=== PATIENT | male | born 1955 | race Caucasian/White ===

== ENCOUNTER → 2017-12-10 15:28 | Outpatient (CLI) | payer OTHER, SELFPAY ==
--- NOTE | 2017-12-10 15:32 | CT_ITS ---
STUDY: CT ABDOMEN AND PELVIS WITH CONTRAST REASON FOR EXAM: Male, 62 years old. Diverticulitis. History of prior colectomy. RADIATION DOSAGE (If Supplied By Facility): CTDIvol = ( 18.11 ) mGy, DLP = ( 975.21 ) mGycm TECHNIQUE: Transaxial images were obtained from the dome of the diaphragm to the symphysis pubis without oral contrast. 100mL ml of Isovue 300 contrast was administered. Sagittal and coronal images were reconstructed. Individualized dose optimization techniques were used for this CT. COMPARISON: CT of the abdomen and pelvis, August 17, 2013 FINDINGS: The visualized lung bases are unremarkable. The visualized portions of the heart are within normal limits. Normal liver. There are multiple gallstones without wall thickening or inflammatory change or biliary ductal dilatation. Normal spleen. Normal pancreas. Normal bilateral adrenal glands. There is a small exophytic cyst off the medial aspect lower pole of the right kidney. The right kidney is otherwise unremarkable. Normal right ureter. There is a large exophytic cyst off the mid left kidney measuring 5.5 cm in diameter. The left kidney is otherwise unremarkable. Normal left ureter. Normal visualized stomach. Normal small intestine. There is evidence of a surgical anastomosis in rectosigmoid region suggesting prior partial colectomy. There are scattered diverticuli without acute inflammatory change. There are surgical clips in the region of the appendix consistent with a prior appendectomy. There is diffuse atherosclerotic calcification of the abdominal aorta, without a demonstrated aneurysm. Normal inferior vena cava. Normal retroperitoneum. Normal urinary bladder. Prostate is mildly enlarged. There is no pelvic lymphadenopathy. No free air or free fluid is seen within the peritoneal cavity. Normal abdominal wall. There are diffuse degenerative changes of the visualized lumbar spine. CT/Abdomen/Pelvis WITH Contrast IMPRESSION: No acute intra-abdominal or pelvic abnormality or major interval change. Again seen is evidence of prior partial left colectomy and appendectomy. There are stable gallstones and renal cysts. Electronically Signed: Sekou Dorsey DO at 18:36 EDT Tel [phone], Service support ,
[2017-12-10 18:15] LABS: CREATININE FINGERSTICK 1.3 mg/dL (0.70-1.30)
== END ==
PROVIDERS: Family Provider Family Medicine; PCP Family Medicine; Visit Provider Family Medicine
DX: K57.92 Diverticulitis of intestine, part unspecified, without perforation or abscess without bleeding (principal)
CPT/HCPCS: 74177; Q9967; A4216

== ENCOUNTER → 2017-12-13 15:27 | Outpatient (CLI) | payer OTHER, SELFPAY ==
[2017-12-13 17:46] LABS: Hematocrit 41.1 % (40-54); Hemoglobin 13.6 g/dl (13.0-16.5); Mean Corp Hgb Conc 33.1 g/gl (32-36); Mean Corpuscular Hgb 28.2 pg (27.0-32.0); Mean Corpuscular Volume 85.3 fL (80-94); Platelet Count 315 K/mm3 (150-450); RBC Distribution Width CV 14.2 % (11.6-14.6); Red Blood Count 4.82 M/mm3 (4.6-6.2); White Blood Count 10.7 K/mm3 (4.4-11.0)
[2017-12-13 17:50] LABS: Scan Indicated on CBC? Y/N NO
[2017-12-13 18:09] LABS: ALB/GLOB Ratio 1.3 RATIO (0.9-2.4); AST(SGOT) 24 U/L (15-37); Alanine Aminotransfer ALT/SGPT 35 U/L (16-61); Albumin, Serum 4.4 g/dL (3.2-5.0); Alkaline Phosphatase 74 U/L (45-117); Amylase 83 U/L (25-115); Anion Gap 9 (5-15); BUN 22 mg/dL (7-18); BUN/Creat Ratio 13.6 RATIO (10-20); Calcium,Total 9.7 mg/dL (8.5-10.1); Chloride 104 mmol/L (98-107); Creatinine, Serum 1.62 mg/dL (0.70-1.30); EST Glomerular Filtration Rate 46 mL/min (>60); Est Glom Filt Rate - Afr Amer 55 mL/min (>60); Globulin 3.5 g/dL (2.2-4.2); Glucose 150 mg/dL (74-106); Potassium 3.7 mmol/L (3.5-5.1); Protein, Total 7.9 g/dL (6.4-8.2); Sodium Level 139 mmol/L (136-145)
== END ==
PROVIDERS: Family Provider Family Medicine; PCP Family Medicine; Visit Provider Family Medicine
DX: R10.10 Upper abdominal pain, unspecified (principal)
CPT/HCPCS: 36415; 80053; 82150; 85027

== ENCOUNTER → 2019-02-13 10:45 | Outpatient (CLI) | payer MEDICARE, SELFPAY ==
[2019-02-13 12:34] LABS: Absolute Neutrophil Count 3.9 X10^3/uL (2.0-7.7); Basophil# 0.03 X10^3/uL; Basophil% 0.4 % (0-1); Eosinophils% 1.5 % (0-5); Hemoglobin 13.9 g/dL (13.0-16.5); Lymphocyte % 28.4 % (19-41); Mean Corp Hgb Conc 32.3 g/dL (32-36); Mean Corpuscular Hgb 28.4 pg (27.0-32.0); Mean Corpuscular Volume 87.9 fL (80-94); Mean Platelet Vol. 10.5 fl (6.2-12.0); Monocyte# 0.68 X10^3/uL; Monocyte% 10.2 % (0-10); NRBC Flagged by Analyzer 0 % (0-5); Neutrophil # 3.94 X10^3/uL (2.7-7.7); Neutrophil % 59.1 % (47-70); Platelet Count 276 K/mm3 (150-450); RBC Distribution Width CV 13.3 % (11.6-14.6); RBC Distribution Width SD 43.1 fl (35.1-43.9); Red Blood Count 4.89 M/mm3 (4.6-6.2); White Blood Count 6.7 K/mm3 (4.4-11.0)
== END ==
PROVIDERS: Family Medicine; Family Provider Family Medicine; PCP Family Medicine; Referring Provider Family Medicine; Visit Provider Family Medicine
DX: K57.92 Diverticulitis of intestine, part unspecified, without perforation or abscess without bleeding (principal)
CPT/HCPCS: 36415; 85025

== ENCOUNTER → 2019-04-04 15:36 | Outpatient (CLI) | payer MEDICARE, SELFPAY ==
[2019-04-04 18:21] LABS: Anion Gap 6 (5-15); BUN 21 mg/dL (7-18); BUN/Creat Ratio 13.9 RATIO (10-20); Chloride 105 mmol/L (98-107); Cholesterol 180 mg/dL (200); Creatinine, Serum 1.51 mg/dL (0.70-1.30); EST Glomerular Filtration Rate 49 mL/min (>60); Est Glom Filt Rate - Afr Amer 60 mL/min (>60); Glucose 123 mg/dL (74-106); High Density Lipoprotein 37 mg/dL; Potassium 3.7 mmol/L (3.5-5.1); Sodium Level 138 mmol/L (136-145); Triglycerides 199 mg/dL; Very Low Density Lipoprotein 40 mg/dL (5-40)
== END ==
PROVIDERS: Family Provider Family Medicine; PCP Family Medicine; Referring Provider Family Medicine; Visit Provider Family Medicine
DX: I10 Essential (primary) hypertension (principal)
CPT/HCPCS: 36415; 80048; 80061

== ENCOUNTER → 2019-04-24 13:39 | Outpatient (CLI) | payer MEDICARE, SELFPAY ==
[2019-04-24 16:05] LABS: Anion Gap 6 (5-15); BUN 19 mg/dL (7-18); BUN/Creat Ratio 15.2 RATIO (10-20); Calcium,Total 9.5 mg/dL (8.5-10.1); Chloride 103 mmol/L (98-107); Creatinine, Serum 1.25 mg/dL (0.70-1.30); EST Glomerular Filtration Rate 61 mL/min (>60); Est Glom Filt Rate - Afr Amer 74 mL/min (>60); Glucose 110 mg/dL (74-106); Potassium 3.8 mmol/L (3.5-5.1); Sodium Level 136 mmol/L (136-145)
== END ==
PROVIDERS: PCP Family Medicine; Referring Provider Family Medicine; Visit Provider Family Medicine
DX: I10 Essential (primary) hypertension (principal)
CPT/HCPCS: 36415; 80048

== ENCOUNTER → 2019-10-17 10:17 | Outpatient (CLI) | payer MEDICARE, SELFPAY ==
[2019-10-17 12:26] LABS: Anion Gap 5 (5-15); BUN 22 mg/dL (7-18); BUN/Creat Ratio 17.2 RATIO (10-20); Calcium,Total 9.1 mg/dL (8.5-10.1); Chloride 107 mmol/L (98-107); Creatinine, Serum 1.28 mg/dL (0.70-1.30); EST Glomerular Filtration Rate 60 mL/min (>60); Est Glom Filt Rate - Afr Amer 72 mL/min (>60); Glucose 122 mg/dL (74-106); Potassium 4.5 mmol/L (3.5-5.1); Sodium Level 139 mmol/L (136-145)
== END ==
PROVIDERS: PCP Family Medicine; Visit Provider Family Medicine
DX: I10 Essential (primary) hypertension (principal)
CPT/HCPCS: 36415; 80048

== ENCOUNTER → 2019-11-04 10:01 | Outpatient (CLI) | payer MEDICARE, SELFPAY ==
--- NOTE | 2019-11-04 10:01 | CDU_ITS ---
Reason For Study: carotid bruit Rt. Velocities/BP Lt. Velocities/BP Prox CCA 115.2/14.7 cm/sec. Prox CCA 132.1/22.5 cm/sec. Mid CCA 115.2/17.3 cm/sec. Mid CCA 128.4/20.6 cm/sec. Dist CCA 93.0/20.0 cm/sec. Dist CCA 88.8/13.9 cm/sec. Prox ICA 132.1/26.1 cm/sec. Prox ICA 93.7/13.3 cm/sec. Mid ICA 185.1/40.2 cm/sec. Mid ICA 81.4/16.3 cm/sec. Dist ICA 152.1/31.4 cm/sec. Dist ICA 67.9/17.6 cm/sec. Rt. ICA/CCA = 1.6. Lt. ICA/CCA = .7. Prox ECA 197.6/13.7 cm/sec. Prox ECA 178.4/18.2 cm/sec. Rt. Vert. 57.5/12.4 cm/sec. Lt. Vert. 69.1/10.2 cm/sec. Right Extracranial There is intimal thickening but no significant atherosclerotic plaque noted in the right common carotid artery. There is heterogeneous, irregular atherosclerotic plaque noted in the right internal carotid artery. There is heterogeneous, irregular atherosclerotic plaque noted in the right external carotid artery. Antegrade flow is noted in the right vertebral artery. Left Extracranial There is intimal thickening but no significant atherosclerotic plaque noted in the left common carotid artery. There is intimal thickening but no significant atherosclerotic plaque noted in the left internal carotid artery. There is homogeneous, smooth atherosclerotic plaque noted in the left external carotid artery. Antegrade flow is noted in the left vertebral artery. Procedure Carotid Duplex [id number]. The exam was diagnostic. Exam performed in department. Interpretation Summary Irregular heterogenous plaque at the proximal right internal carotid artery with 50 to 69% stenosis. <50% stenosis right external carotid Widely patent left carotid bulb and proximal internal carotid artery with less than 50% stenosis. <50% stenosis left external carotid Patent and antegrade vertebrals bilaterally Ordering Physician: Kenan Garcia Performed By: Michele Thurston RVT
== END ==
PROVIDERS: PCP Family Medicine; Referring Provider Surgery; Visit Provider Surgery
DX: R09.89 Other specified symptoms and signs involving the circulatory and respiratory systems (principal)
CPT/HCPCS: 93880

== ENCOUNTER → 2019-11-18 08:26 | Outpatient (CLI) | payer MEDICARE, SELFPAY ==
[2019-11-07 14:18] VITALS: BMI 28.8
--- NOTE | 2019-11-18 08:30 | US_ITS ---
STUDY: ABDOMINAL ULTRASOUND - RIGHT UPPER QUADRANT REASON FOR VISIT: Male, 64 years old ABD PAIN X 2 WEEKS TECHNIQUE: Ultrasound evaluation of the right upper quadrant was performed with real-time and static olsen-scale imaging. TECHNICAL QUALITY: Adequate. COMPARISON: None. FINDINGS: Liver: The liver measures 17.4 cm. There is increased echogenicity consistent with fatty infiltration. The bile ducts are within normal limits. There is hepatic color flow. The direction of portal flow is hepatopetal. There is no demonstrated mass lesion. Gallbladder: Normal distended gallbladder. The gallbladder wall measures 2 mm. There is a negative sonographic Costello''s sign. There is no pericholecystic fluid. There are multiple echogenic structures within the gallbladder, consistent with multiple gallstones. Common Bile Duct (C.B.D.): The common bile duct measures 5 mm. Pancreas: Partially obscured by gas. Visible portions are normal. Right Kidney: Normal size of the right kidney. The right kidney measures 10.0 x 5.7 x 5.4 cm. Normal renal cortex. The right cortex measures 1.8 cm. There is no demonstrated renal mass or cyst. There is no right hydronephrosis. US/Abdomen Limited IMPRESSION: Fatty liver. Multiple gallstones. No gallbladder wall thickening. Normal common bile duct. Electronically Signed: Chris Goncalves MD at 19:14 EDT Tel , Service support ,
== END ==
PROVIDERS: PCP Family Medicine; Referring Provider Family Medicine; Visit Provider Family Medicine
DX: R10.9 Unspecified abdominal pain (principal)
CPT/HCPCS: 76705

== ENCOUNTER 2019-12-04 10:28 | Day surgery (SDC) | payer MEDICARE, SELFPAY ==
[2019-11-27 05:50] VITALS: BMI 28.9
[2019-11-27 09:11] LABS: Bacteria 0 SEEN /hpf (None Seen); Mucous, Urine 0 SEEN /hpf (<or=2+); Red Blood Cells-Urine 0 SEEN /hpf (0-5); Squamous Epithelial Cells - UA 0 SEEN /hpf (0-5); White Blood Cells 0 SEEN /hpf (0-5)
--- NOTE | 2019-11-27 09:22 | EKG12_ITS ---
Test Reason : PRE OP Blood Pressure : / mmHG Vent. Rate : 056 BPM Atrial Rate : 056 BPM P-R Int : 138 ms QRS Dur : 090 ms QT Int : 422 ms P-R-T Axes : 062 049 046 degrees QTc Int : 407 ms Sinus bradycardia Otherwise normal ECG Confirmed by ISAÍAS JOSHI, NAYLA ([id number]), dictionary editor EDOUARD DEL TORO ([id number]) on 11/28/2019 11:36:36 A M Referred By: Kenan Garcia Confirmed By:ARYAN METZ MD
[2019-11-27 09:38] LABS: Color, Urine Straw (Yellow); Glucose, Dipstick Normal (Normal); Ketone-Dipstick Negative (Negative); Leukocyte Esterase-Dipstick Negative /ul (Negative); Nitrite-Dipstick Negative (Negative); Occult Blood-Urine Negative /ul (Negative); Protein-Dipstick Negative (Negative); Specific Gravity, Urine 1.005 (1.002-1.030); Urine Bilirubin Dipstick Negative (Negative); Urine Clarity Clear (Clear); Urine Urobilinogen Normal (Normal); Urine pH 6.5 (5.0 - 8.0)
[2019-11-27 09:43] LABS: Absolute Lymphocyte Count 2.63 X10^3/uL (0.83-4.51); Absolute Neutrophil Count 5.5 X10^3/uL (2.0-7.7); Basophil# 0.04 X10^3/uL; Basophil% 0.4 % (0-1); Eosinophil# 0.18 X10^3/uL; Hematocrit 40.9 % (40-54); Hemoglobin 13.4 g/dL (13.0-16.5); Lymphocyte # 2.63 X10^3/ul (4.0); Lymphocyte % 29.2 % (19-41); Mean Corp Hgb Conc 32.8 g/dL (32-36); Mean Corpuscular Hgb 28.6 pg (27.0-32.0); Mean Corpuscular Volume 87.4 fL (80-94); Mean Platelet Vol. 10.7 fl (6.2-12.0); Monocyte# 0.64 X10^3/uL; Monocyte% 7.1 % (0-10); NRBC Flagged by Analyzer 0 % (0-5); Neutrophil # 5.48 X10^3/uL (2.7-7.7); Neutrophil % 60.7 % (47-70); Platelet Count 275 K/mm3 (150-450); RBC Distribution Width CV 13.7 % (11.6-14.6); RBC Distribution Width SD 43.4 fl (35.1-43.9); Red Blood Count 4.68 M/mm3 (4.6-6.2)
[2019-11-27 10:11] LABS: ALB/GLOB Ratio 1.1 RATIO (0.9-2.4); AST(SGOT) 15 U/L (15-37); Alanine Aminotransfer ALT/SGPT 31 U/L (16-61); Albumin, Serum 4.1 g/dL (3.2-5.0); Alkaline Phosphatase 80 U/L (45-117); Anion Gap 5 (5-15); BUN 19 mg/dL (7-18); BUN/Creat Ratio 13.3 RATIO (10-20); Calcium,Total 9.4 mg/dL (8.5-10.1); Chloride 103 mmol/L (98-107); Creatinine, Serum 1.43 mg/dL (0.70-1.30); EST Glomerular Filtration Rate 53 mL/min (>60); Est Glom Filt Rate - Afr Amer 64 mL/min (>60); Globulin 3.8 g/dL (2.2-4.2); Glucose 131 mg/dL (74-106); Lipase 71 U/L (73-393); Protein, Total 7.9 g/dL (6.4-8.2); Sodium Level 137 mmol/L (136-145)
[2019-12-04] VITALS (9 sets, daily range): BP systolic 98–152; BP diastolic 51–70; PULSE 48–78; RESP 16; TEMP 36.4–36.9; O2SAT 91–97; BMI 29.0
--- NOTE | 2019-12-04 10:42 | PCM.HP.BLA ---
Problem List (1) Cholelithiasis with chronic cholecystitis Status: Chronic Qualifiers: History and Physical Date of Admission: 12/04/19 Intake Visit Reasons: GALLSTONES Allergies No Known Allergies Allergy (Verified 11/27/19 08:08) Medications Pantoprazole Sodium [Protonix] 40 mg PO DAILY 08/17/13 [History Confirmed 11/27/19] allopurinol 300 mg tablet 300 mg PO DAILY tab 11/07/19 [History Confirmed 11/27/19] amlodipine 5 mg tablet 5 mg PO DAILY tab 11/07/19 [History Confirmed 11/27/19] ascorbate calcium (vitamin C) 500 mg tablet 500 mg PO BID 11/07/19 [History Confirmed 11/27/19] aspirin 81 mg tablet,delayed release 81 mg PO DAILY 11/07/19 [History Confirmed 11/27/19] lisinopril 20 mg-hydrochlorothiazide 12.5 mg tablet 1 tab PO DAILY tab 11/07/19 [History Confirmed 11/27/19] PFSH Family History Brother Cancer Brain cancer Social History (Updated 11/27/19 @ 08:[address] Kenan Garcia MD) Smoking Status: Former smoker alcohol intake: current alcohol intake frequency: holidays/special occasions only substance use type: does not use caffeine: Yes HPI HPI HPI: MIGUEL CANTU, is a 64 M who presents to the office today for surgical consultation regarding abdominal pain. The patient is referred by Dr. Melany Zamora and a written copy of my surgical consult recommendations will be returned to her. For the past month the patient has been having problems on 2 different fronts. He has been having a right flank pain rating to the right subcostal epigastric area. Same achy nonspecific pressured pain. No fever or chills or sweats or nausea or vomiting. No shortness of breath. In the same light he has been having looser stools. Often thinks his stools are more thin in nature. Now he has had previous sigmoid diverticulitis with stricturing. Dr. Luo on July 22, 2012 performed laparoscopic lysis adhesions and laparoscopic low anterior resection. He states that some adhesions of small bowel to the right lower quadrant at site of her previous appendectomy. It appears that these were easily lysed. The sigmoid colon appears to have been easily mobilized. The patient is not complaining any left lower quadrant pain. He has not noticed any bright red blood per rectum or melena. He does have mild reflux disease. He is on chronic pantoprazole therapy. He was instructed by Dr. Melany Zamora to increase this to twice daily wonders epigastric right upper quadrant pain started and that has not made any difference. He had a gallbladder abdominal ultrasound as noted below demonstrating multiple gallstones. There were no other signs of acute cholecystitis. Patient does not associate his pain with any particular food intake Review of recent laboratory does not show recent LFTs. November 18, 2019 [facility] Imaging Services [address] [place] [address] Abdomen Limited MR#: [id number] Name: MIGUEL CANTU [facility] #:[id number] : 1955M [id number] From: Chris Goncalves MD PCP:Dr. Melany Zamora MD Status:REG CLI Study:Abdomen Limited Date of Exam:11/18/19 Exam#[id number] Ordering Dr: Melany Zamora MD STUDY: ABDOMINAL ULTRASOUND - RIGHT UPPER QUADRANT REASON FOR VISIT: Male, 64 years old ABD PAIN X 2 WEEKS TECHNIQUE: Ultrasound evaluation of the right upper quadrant was performed with real-time and static olsen-scale imaging. TECHNICAL QUALITY: Adequate. COMPARISON: None. FINDINGS: Liver: The liver measures 17.4 cm. There is increased echogenicity consistent with fatty infiltration. The bile ducts are within normal limits. There is hepatic color flow. The direction of portal flow is hepatopetal. There is no demonstrated mass lesion. Gallbladder: Normal distended gallbladder. The gallbladder wall measures 2 mm. There is a negative sonographic Costello''s sign. There is no pericholecystic fluid. There are multiple echogenic structures within the gallbladder, consistent with multiple gallstones. Common Bile Duct (C.B.D.): The common bile duct measures 5 mm. Pancreas: Partially obscured by gas. Visible portions are normal. Right Kidney: Normal size of the right kidney. The right kidney measures 10.0 x 5.7 x 5.4 cm. Normal renal cortex. The right cortex measures 1.8 cm. There is no demonstrated renal mass or cyst. There is no right hydronephrosis. US/Abdomen Limited IMPRESSION: Fatty liver. Multiple gallstones. No gallbladder wall thickening. Normal common bile duct. Electronically Signed: Chris Goncalves MD at 19:14 EDT Tel , Service support , December 10, 2017 [facility] Imaging Services [address] [place] [id number] Abdomen/Pelvis WITH Contrast MR#: [id number] Name: MIGUEL CANTU [facility] #:[id number] : 1955M [id number] From: Sekou Dorsey DO PCP:Melany Zamora MD Status:REG CLI Study:Abdomen/Pelvis WITH Contrast Date of Exam:12/10/17 Exam#[id number] Ordering Dr: Melany Zamora MD STUDY: CT ABDOMEN AND PELVIS WITH CONTRAST REASON FOR EXAM: Male, 62 years old. Diverticulitis. History of prior colectomy. RADIATION DOSAGE (If Supplied By Facility): CTDIvol = ( 18.11 ) mGy, DLP = ( 975.21 ) mGycm TECHNIQUE: Transaxial images were obtained from the dome of the diaphragm to the symphysis pubis without oral contrast. 100mL ml of Isovue 300 contrast was administered. Sagittal and coronal images were reconstructed. Individualized dose optimization techniques were used for this CT. COMPARISON: CT of the abdomen and pelvis, August 17, 2013 FINDINGS: The visualized lung bases are unremarkable. The visualized portions of the heart are within normal limits. Normal liver. There are multiple gallstones without wall thickening or inflammatory change or biliary ductal dilatation. Normal spleen. Normal pancreas. Normal bilateral adrenal glands. There is a small exophytic cyst off the medial aspect lower pole of the right kidney. The right kidney is otherwise unremarkable. Normal right ureter. There is a large exophytic cyst off the mid left kidney measuring 5.5 cm in diameter. The left kidney is otherwise unremarkable. Normal left ureter. Normal visualized stomach. Normal small intestine. There is evidence of a surgical anastomosis in rectosigmoid region suggesting prior partial colectomy. There are scattered diverticuli without acute inflammatory change. There are surgical clips in the region of the appendix consistent with a prior appendectomy. There is diffuse atherosclerotic calcification of the abdominal aorta, without a demonstrated aneurysm. Normal inferior vena cava. Normal retroperitoneum. Normal urinary bladder. Prostate is mildly enlarged. There is no pelvic lymphadenopathy. No free air or free fluid is seen within the peritoneal cavity. Normal abdominal wall. There are diffuse degenerative changes of the visualized lumbar spine. CT/Abdomen/Pelvis WITH Contrast IMPRESSION: No acute intra-abdominal or pelvic abnormality or major interval change. Again seen is evidence of prior partial left colectomy and appendectomy. There are stable gallstones and renal cysts. Electronically Signed: Sekou Dorsey DO at 18:36 EDT Tel [phone], Service support , I have recently seen him for follow-up of extracranial carotid artery occlusive disease. My recent note is as follows. MIGUEL CANTU, is a 64 M who presents to the office today for surgical follow-up regarding extracranial carotid artery occlusive disease. He has some very minimal nonspecific symptoms of dizziness when he goes quickly from a lying position to a standing position or when he is looking with his head severely angled up. He denies any focal motor or sensory loss. No speech deficit. He reminds me that he has had a previous left carotid endarterectomy. The current situation revolves around the fact that he was detected is having a right carotid bruit. A duplex imaging was obtained which is consistent with the following. 50 to 69% stenosis on the right and good postoperative results with less than 50% stenosis on the left. HPI HPI HPI: MIGUEL CANTU, is a 64 M who presents to the office today for Exam Const General: cooperative, healthy appearing, comfortable, no acute distress Nutritional Appearance: average body habitus Orientation: alert, awake [facility] Head: normal to inspection Neck Neck: normal visual inspection Resp Effort & Inspection: normal respiratory effort Auscultation: clear to auscultation bilaterally Cardio Rate: regular rate Rhythm: regular rhythm GI Palpation: soft Other: Mild tenderness palpation right upper quadrant and right mid abdomen. No actual guarding no rebound. Bowel sounds are present and unremarkable. Well-healed infraumbilical midline incision. No left lower quadrant mass or tenderness. Musc Cervical Spine: normal cervical lordosis Skin General: no rashes or lesions noted Neuro Cognition: normal cognition Extrem General: no calf tenderness Psych Affect: normal affect Assessment & Plan Problems 1. Calculus of gallbladder with chronic cholecystitis without obstruction K80.10 2. History of partial colectomy Z90.49 3. History of carotid endarterectomy Z98.890 4. Diarrhea, unspecified type R19.7 Plan Patient with right flank pain epigastric and right subcostal pain as well as change in bowel habits. He is complaining of looser stools and diarrhea. This is being evaluated by Dr. Schafer. I do not see that stool analysis has been performed. I recommended the patient for the abdominal pain that we get a urinalysis because of the right flank nature. I recommend a complete metabolic profile lipase and a CBC with differential. I strongly suspect that he has chronic cholecystitis cholelithiasis based upon symptoms and clinical exam. He is not demonstrating to me signs of bowel obstruction or diverticulitis. He has a colonoscopy scheduled for December 02, 2019. I recommended to him a laparoscopic cholecystectomy with selective cholangiography and in detail discussed the technique, benefit, risk and alternatives. We will need to await his colonoscopy. I have a lower level of suspicion at this time of acute colonic pathology. As noted in my history I have recently seen this patient for his extracranial carotid artery occlusive disease which is currently stable. He will be maintained on his 81 mg aspirin. The patient has had an opportunity to ask and have questions answered. I appreciate the opportunity of assisting with his surgical care. Copy: Dr Melany Garcia M.D., F.A.C.S. I have re-examined the patient. There are no clinical changes since date of exam. Procedure Criteria Procedure Type: Elective COVID Risk Discussion: The surgeon/proceduralist and patient have discussed in detail the risk of exposure to and/or potential harm posed by the COVID-19 virus with having a surgery/procedure at this time versus the risk of delaying the surgery/procedure. It is not possible to know either the risk of delaying the surgery or procedure or chance of getting an infection with perfect accuracy, but a joint decision was made between the patient and the surgeon/proceduralist to proceed at this time with the scheduled surgery/procedure as indicated on the consent form.
[2019-12-04] MEDS: Lactated Ringers 1,000 ML 100 ML IV (10:58)
[2019-12-04 11:07] LABS: Partial Thromboplast Time 30.1 Seconds (24.1-36.2); Prothrombin Time (Protime)PT. 13.1 SECONDS (11.7-14.9)
--- NOTE | 2019-12-04 12:14 | DCINST_ITS ---
Discharge Diet: Light diet - advance as tolerated - if you have questions about your diet instructions, please talk to you doctor. Discharge Activity: May Not Drive - for 3-5 days or while taking narcotic pain medicine. May shower in (days): 1 Lifting Restrictions: 10 pounds Call your doctor if your incision/area has: Continuous Slow Oozing, Sudden Increased Bleeding, Increased Pain/ Swelling, Increased Redness, Foul Smelling Discharge Call your doctor if you observe: Fever of 101 or Higher Suture Line Care: Avoid Pulling/Pushing, Avoid Pinching/Bending Additional Dressing/Incision Instructions:: Change or remove dressing in 4 days. Leave steri-strips in place for 1 week. Allergies/Adverse Reactions: Allergies No Known Allergies Allergy (Verified 12/04/19 10:33) Medications to take at Discharge Pantoprazole Sodium [Protonix] 40 mg PO DAILY 08/17/13 allopurinol 300 mg tablet 300 mg PO DAILY tab 11/07/19 amlodipine 5 mg tablet 5 mg PO QHS tab 11/07/19 ascorbate calcium (vitamin C) 500 mg tablet 500 mg PO DAILY 11/07/19 aspirin 81 mg tablet,delayed release 81 mg PO DAILY 11/07/19 lisinopril 20 mg-hydrochlorothiazide 12.5 mg tablet 1 tab PO DAILY tab 11/07/19 Primary Care Physician: Melany Zamora MD [Primary Care Provider] - Test Results: Test results from this visit will be discussed in further detail at your follow- up appointment, if applicable. Please Follow Up With: Kenan Garcia MD - [phone] When: Call to make an appointment to be seen in about 10 days.
--- NOTE | 2019-12-04 12:30 | GALL_PTH ---
PATIENT: MIGUEL CANTU [place] [facility] [place][id number] AGE/SX: 64/M ROOM: RE12/04/[address]: Dr. Kenan Garcia MD : 1955 BED: DIS: 12/04/2019 SPEC #: [id number] RECD: 12/04/19 13:42 STATUS: KUMAR RECharles #: [id number] TAB: 12/04/19 12:[address]: Kenan Garcia DEPT: SURGICAL PATHOLOGY RECD BY: Robin Dai ENTERED: 12/05/19 09:04 SP TYPE: SHANT DELGADO DR: Dr. Melayn Zamora MD Tissues: Gallbladder, NOS Procedures: Surgery Specimen Level III HEADER OPERATION: Laparoscopic cholecystectomy with IOC PRE-OP DIAGNOSIS: Calculus of gallbladder with chronic cholecystitis TISSUE SUBMITTED: Gallbladder MICROSCOPIC DIAGNOSIS Gallbladder, cholecystectomy: Mild chronic cholecystitis, cholelithiasis and focal cholesterolosis. SJ:marbella 12/09/19 MICROSCOPIC DESCRIPTION Slides are reviewed. GROSS DESCRIPTION Received is one container labeled with the patient's name and designated gallbladder. The specimen consists of a gallbladder measuring 9.5 cm in length and up to 3.5 cm in diameter. The external surface is pink-echols, smooth and glistening for the most part. Focally it is granular, hemorrhagic and contains cautery artifact. The gallbladder contains green-yellow mucoid bile and four multifaceted brownish-greenish stones measuring in aggregate 2.5 x 2 x 1 cm and 0.7 to 1 cm in greatest dimension. The mucosa is bile-stained and without any mass lesions. The gallbladder wall measures up to 0.1 cm in thickness. The mucosa also shows several yellowish streaks consistent with cholesterolosis. Textile Supervisor sections from the gallbladder and the cystic duct are submitted in one cassette. / KALA:marbella 12/05/19 TC:3 CPT: 57881
[2019-12-04] MEDS: Cefazolin 2 GM in 0.9% Normal Saline 100 ML IV (12:38)
--- NOTE | 2019-12-04 12:52 | RAD_ITS ---
STUDY: INTRAOPERATIVE CHOLANGIOGRAM. REASON FOR EXAM: Male, 64 years old. LAP ROMEL -- 1 CINE RUN, 11.9 FLUORO SEC, 10.95mGy FLUOROSCOPY TIME (if supplied): ( 11.9 seconds ) minutes/seconds. TECHNIQUE: An intraoperative lines when was performed by the surgeon. Imaging was submitted. COMPARISON: None. FINDINGS: The intra and extra hepatic biliary ducts are unremarkable. No intraluminal filling defect is seen. There is free flow of contrast into the duodenum. RAD/Cholangiogram/ O R,Initial IMPRESSION: Unremarkable intraoperative glandular. Electronically Signed: Sang Santos, at 13:55 EDT , Service support ,
[2019-12-04] MEDS: Bupivacaine Mpf 0.5% 30 ML VIAL (13:39)
--- NOTE | 2019-12-04 13:52 | OP.PCM_ITS ---
Problem List (1) Cholelithiasis with chronic cholecystitis Status: Chronic Qualifiers: Report of Operation Date of Procedure: 12/04/19 Pre-Operative Diagnosis: Chronic cholecystitis cholelithiasis Post-Operative Diagnosis: Same Surgery/Procedure Performed:: Laparoscopic cholecystectomy with cholangiography Description of Surgical Findings:: Timeout and informed consent was obtained. 64-year-old gentleman was taken to the operating place upon the table underwent general endotracheal intubation esthesia. Ancef 2 g were given intravenously preoperatively. The abdomen sterilely prepped draped. 0.5% Marcaine was used as a local anesthetic. Throughout the procedure total 30 cc was used. Skin sites were pre- anesthetized. A transverse supraumbilical incision was created to avoid previous incisions. Sharp dissection carried down through the subtenons tissue. Holding sutures of 0 Vicryl placed. Varies needle inserted. Saline drop test performed. The abdomen was insufflated with CO2 to a pressure of 10 mmHg pressure. 10 mm trocar inserted. 10 mm laparoscope inserted. No evidence of any trocar injuries. Under direct visualization 5 mm ports were placed in the epigastric mid abdomen and right upper quadrant.. The abdomen was inspected. There was a small set of omental adhesions to the infraumbilical midline. No evidence of bowel involvement. The liver had a fatty change to it. The gallbladder was distracted blunt dissection was instituted at the infundibulum until clearly the critical view was achieved. The cystic duct and cystic artery identified. The cystic artery was clipped twice proximally 1 distally with hemo-lock clips and transected. A hemo-lock clip was placed on the cystic distal cystic duct infundibular area. Incision was made in the cystic duct and through a 14-gauge Angiocath a cholangiogram catheter was inserted. Fluoroscopically control cholangiograms were obtained demonstrating normal ductal anatomy and free flow into the small bowel. The cholangiogram catheter was removed and 2 hemo-lock clips were placed on the cystic duct stump prior to transecting it. The gallbladder was then dissected free from the liver bed using electrocautery. Complete hemostasis was intact. A piece of fibrillar was placed in the liver bed to further assure hemostasis. The gallbladder was placed in a retrieval bag. The right upper quadrant was irrigated and aspirated free of excess fluid. Then using the antiviral valve the abdomen was allowed to deflate of the CO2. The gallbladder was exited at the umbilicus. The remaining trochars were removed. The fascia at the umbilicus approximated with interrupted 0 Vicryl [id number] suture. Skin edges approximated with interrupted 4-0 Monocryl subdermal stitches. Steri-Strips Telfa and OpSite dressings applied. Sponge and instrument and needle counts were reported to surgically correct. Blood loss minimal. Specimen gallbladder. Drains none. Blood loss minimal. The patient was taken to the recovery room in satisfactory addition without apparent complication Kenan Garcia M.D., F.A.C.S. Type of Anesthesia:: General Anesthesiologist: Alec Lipscomb
[2019-12-04] MEDS: HYDROcodone Bitartrate/Apap 5/325 Tablet PO (15:58)
== END 2019-12-04 17:03 | disposition home or self-care (01) ==
LOC: SDC 10:28 → AC 10:29
PROVIDERS: Anesthesiology; PCP Family Medicine; Referring Provider Surgery; Visit Provider Surgery
PROC: (CPT 47610; principal; 2019-12-04 12:10)
DX: K80.10 Calculus of gallbladder with chronic cholecystitis without obstruction (principal); K76.0 Fatty (change of) liver, not elsewhere classified; Z11.59 Encounter for screening for other viral diseases; I10 Essential (primary) hypertension; K21.9 Gastro-esophageal reflux disease without esophagitis; Z86.2 Personal history of diseases of the blood and blood-forming organs and certain disorders involving the immune mechanism; Z87.19 Personal history of other diseases of the digestive system; Z90.49 Acquired absence of other specified parts of digestive tract; Z79.82 Long term (current) use of aspirin; Z79.899 Other long term (current) drug therapy; Z87.891 Personal history of nicotine dependence
CPT/HCPCS: 00790; 47563; 36415; 74300; 76000; 80053; 81001; 83690; 85025; 85610; 85730; 87635; 88304; 93005; 94799; J7120; J2405; U0003

== ENCOUNTER → 2020-04-06 15:09 | Outpatient (CLI) | payer MEDICARE, SELFPAY ==
[2019-12-04 10:50] VITALS: BMI 29.0
[2020-04-06 18:20] LABS: Anion Gap 9 (5-15); BUN 20 mg/dL (7-18); BUN/Creat Ratio 13.5 RATIO (10-20); Chloride 102 mmol/L (98-107); Cholesterol 191 mg/dL (200); Creatinine, Serum 1.48 mg/dL (0.70-1.30); EST Glomerular Filtration Rate 50 mL/min (>60); Est Glom Filt Rate - Afr Amer 61 mL/min (>60); Glucose 178 mg/dL (74-106); High Density Lipoprotein 34 mg/dL; Potassium 3.6 mmol/L (3.5-5.1); Sodium Level 137 mmol/L (136-145); Triglycerides 343 mg/dL; Very Low Density Lipoprotein 69 mg/dL (5-40)
== END ==
PROVIDERS: PCP Family Medicine; Referring Provider Family Medicine; Visit Provider Family Medicine
DX: I10 Essential (primary) hypertension (principal)
CPT/HCPCS: 36415; 80048; 80061

== ENCOUNTER 2021-04-08 14:50 | Outpatient (CLI) | payer MEDICARE, SELFPAY ==
[2021-04-08 18:04] LABS: Anion Gap 11 (5-15); BUN 15 mg/dL (7-18); BUN/Creat Ratio 10.5 RATIO (10-20); Calcium,Total 8.6 mg/dL (8.5-10.1); Chloride 102 mmol/L (98-107); Cholesterol 97 mg/dL (200); Creatinine, Serum 1.43 mg/dL (0.70-1.30); EST Glomerular Filtration Rate 52 mL/min (>60); Est Glom Filt Rate - Afr Amer 63 mL/min (>60); Glucose 279 mg/dL (74-106); High Density Lipoprotein 32 mg/dL; PSA,Total - Annual Screen 0.84 ng/mL (0.00-4.00); Potassium 3.6 mmol/L (3.5-5.1); Sodium Level 138 mmol/L (136-145); Triglycerides 193 mg/dL; Very Low Density Lipoprotein 39 mg/dL (5-40)
== END 2021-04-08 23:59 | disposition short-term general hospital (02) ==
LOC: MFPLAB 14:51
PROVIDERS: PCP Family Medicine; Referring Provider Family Medicine; Visit Provider Family Medicine
DX: Z00.00 Encounter for general adult medical examination without abnormal findings (principal); I10 Essential (primary) hypertension; Z12.5 Encounter for screening for malignant neoplasm of prostate
CPT/HCPCS: 36415; 80048; 80061; 84153; G0103

== ENCOUNTER 2021-04-22 12:26 | Outpatient (CLI) | payer MEDICARE, SELFPAY ==
--- NOTE | 2021-04-22 12:36 | CDU_ITS ---
Reason For Study: STENOSIS Rt. Velocities/BP Lt. Velocities/BP Prox CCA 114.3/15.7 cm/sec. Prox CCA 140.5/21.7 cm/sec. Mid CCA 76.0/10.2 cm/sec. Mid CCA 118.5/21.7 cm/sec. Dist CCA 69.5/16.7 cm/sec. Dist CCA 100.3/12.6 cm/sec. Prox ICA 124.9/26.1 cm/sec. Prox ICA 54.8/14.2 cm/sec. Mid ICA 160.3/33.4 cm/sec. Mid ICA 66.9/16.4 cm/sec. Dist ICA 62.5/14.6 cm/sec. Dist ICA 80.1/23.0 cm/sec. Rt. ICA/CCA = 2.1. Lt. ICA/CCA = .7. Prox ECA 181.1/23.1 cm/sec. Prox ECA 58.1/15.3 cm/sec. Rt. Vert. 52.7/14.6 cm/sec. Lt. Vert. 89.3/14.4 cm/sec. Right Extracranial There is intimal thickening but no significant atherosclerotic plaque noted in the right common carotid artery. There is heterogeneous, irregular atherosclerotic plaque noted in the right internal carotid artery. There is heterogeneous, irregular atherosclerotic plaque noted in the right external carotid artery. Flow could not be demonstrated in the right vertebral artery. There is heterogeneous, irregular atherosclerotic plaque noted in the right bulb. Acoustic shadowing. Left Extracranial There is homogeneous, smooth atherosclerotic plaque noted in the left common carotid artery. There is homogeneous, smooth atherosclerotic plaque noted in the left internal carotid artery. There is homogeneous, smooth atherosclerotic plaque noted in the left external carotid artery. Antegrade flow is noted in the left vertebral artery. Procedure Carotid Duplex [id number]. Exam performed in department. VL/Carotid Duplex Ultrasound Interpretation Summary Irregular calcific plaque of the proximal right internal carotid artery with 50 to 69% stenosis. Less than 50% stenosis right external carotid artery Postoperative changes of the left carotid bulb and proximal internal carotid ar benjamin with no hemodynamically significant plaque identified. Less than 50% stenosis left internal carotid artery Less than 50% stenosis left external carotid artery Patent and antegrade vertebral arteries bilaterally No change from of the previous examination of November 04, 2019 Ordering Physician: Kenan Garcia Referring Physician: WOODY GAUTAM Performed By: Bianca Chowdhury, VIJI, RVT
== END 2021-04-22 23:59 | disposition short-term general hospital (02) ==
PROVIDERS: PCP Family Medicine; Referring Provider Surgery; Visit Provider Surgery
DX: I65.23 Occlusion and stenosis of bilateral carotid arteries (principal); Z98.890 Other specified postprocedural states
CPT/HCPCS: 93880

== ENCOUNTER → 2021-07-28 | Outpatient (CLI) | payer MEDICARE, SELFPAY | END | disposition home or self-care (01) | PROVIDERS: PCP Family Medicine; Referring Provider Family Medicine; Visit Provider Family Medicine | DX: R19.7 Diarrhea, unspecified (principal) | CPT/HCPCS: 87177; 87209; 87493; 87506 ==

== ENCOUNTER 2021-09-09 09:00 | Outpatient (RCR) | payer MEDICARE, SELFPAY ==
--- NOTE | 2021-08-17 17:14 | HP.PTEVAL_ITS ---
Patient's Visit Information IMGUEL CANTU is a 66 year old M referred to Physical Therapy by Dr. Melany Zamora MD with a diagnosis of Right Shoulder Strain. Date of Evaluation: 08/17/21 Physical Therapist: Mayi Christianson DPT - Visit Plan Frequency: 2x /Week Duration: 3 Weeks Plan: Scapular strength/stabilization, postural correction, manual therapy, US and mod as needed. HEP Given IE: Postural education, scapular retraction, UT stretch, Levator Stretch, CT Junction Stretch - Subjective Patient reports that he fell with an arm extended into the air in May while holding onto a calf- and its been bothering him since. Went to chiro (manipulation to neck and shoulder and e-stim) and it would be okay for a few days and then it came back. It wasn't getting any betters- they wanted and MRI- went to see who sent him to PT. Has not had x-rays or MRI at this time. Pain is located in the top of the shoulder and into the bottom of the shoulder blade. Does have radiating pain to the fingers. Pain- no N/T. Sleep: disturbed- wakes him up- roll back and forth on it. Right hand dominate. Worst: 5/10 Agg: Lifting to the side or taking his neck towards it. Best: 1- 2/10 Eases: putting the arm in a more sling type position. 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 No FAIR, blurred vision, dizziness. 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 PMHx/Meds: see list in chart from 05/24. - Objective Posture: FH, RS- can correct but does not maintain - guards right. Gait: no deviation- good arm swing and trunk rotation. Palpation: tender along upper trap from occiput to tip of acromion, middle traps, rhomboids- Significant discomfort with PA glides to C5-6- tender along bicipital groove. Sensation: WFL to gross touch in bilateral UE. ROM: Cervical: flexion: WFL, Extn: neutral, SB Left: diminished by 25% SB Right: diminished by 75% with pain, Rot Left: diminished bby 75% with pain, Left Rot: diminished by 25% with discomfort, Shoulder: flexion: 160 degrees abd: 90 degrees, IR: equal to left, ER: 50 degrees, Elbow/Wrist/hand: WFL. Strength: Scap: poor, Shoulder: 4/5 in neutral, Elbow: 4+/5 Wrist: 5/5 Hand: WFL. Flex: UT: severe, Levator: Severe - Special Tests C/S Radiculapathy - Right Upper limb tension test: Positive C/S Radiculapathy - Right Spurlings: Positive C/S Radiculapathy - Right Cervical distraction: Positive R Shoulder Lift Off Test - Subscapular Tear: Positive R Shoulder Drop Sign - IS Test: Positive R Shoulder Empty Can - SS: Positive R Shoulder Belly Press - SupScap: Positive R Shoulder Neer - Impingement: Positive R Shoulder Persaud Cameron - Impingement: Positive - Balance/Special Test Scores Quick DASH Score: 20.4525 - Goals Goal 1:: Patient will be I with HEP and progression Goal Time Frame: 4-6 Weeks Goal 2:: Patient will maintain proper posture t/o tx session to demo increased scap s/s Goal Time Frame: 4-6 Weeks Goal 3:: Patient will demo full AROM of UE and scapula without pain Goal Time Frame: 4-6 Weeks Goal 4:: Patient will report 80% improvement Goal Time Frame: 4-6 Weeks - Rehabilitation Potential Physical Therapy Diagnosis: Patient presents with hypomobility- he has decreased pain free ROM in the cervical spine and UE, scapular s/s and muscular endurance leading to poor posture and increased pain with ADL's. Rehabilitation Potential: Good - Anticipated Interventions Patient/Client Instruction: Educate patient on: Benefits of Fitness Program Therapeutic Exercise to Include: Strength training, Endurance training, Balance training, Coordination, Agility training, Body mechanics, Postural training, Flexibilty training, Neuromotor development, Dynamic Lumbar Stabilization, Scapular Strength/Stabilization For the Purpose of:: To improve muscle performance and motor function TENS: Yes Cryotherapy (ice pack, ice massage): Yes Thermo therapy (hot pack): Yes Ultrasound (thermal/non thermal): Yes Thank you for the opportunity to evaluate your patient. For Medicare and Medicare HMO plans, please review the plan of care and approve it. It will need to be FAXED BACK to us at [phone] for Medicare purposes. For Medicare only, by signing this I certify the plan of care. Please let me know if there are questions or concerns regarding this plan of care. Physician Signature: Date:
== END 2021-09-09 19:00 | disposition home or self-care (01) ==
LOC: PT 09:00
PROVIDERS: PCP Family Medicine; Referring Provider Family Medicine; Visit Provider Family Medicine
DX: M76.31 Iliotibial band syndrome, right leg (principal)
CPT/HCPCS: 97110; 97162

== ENCOUNTER → 2022-04-12 | Outpatient (CLI) | payer MEDICARE, SELFPAY ==
[2022-04-12 18:07] LABS: AST(SGOT) 10 U/L (15-37); Alanine Aminotransfer ALT/SGPT 21 U/L (16-61); Albumin, Serum 3.8 g/dL (3.2-5.0); Alkaline Phosphatase 74 U/L (45-117); Anion Gap 8 (5-15); BUN 23 mg/dL (7-18); BUN/Creat Ratio 16.4 RATIO (10-20); Bilirubin, Direct 0.13 mg/dL (0.00-0.30); Calcium,Total 9.1 mg/dL (8.5-10.1); Chloride 106 mmol/L (98-107); Cholesterol 118 mg/dL (200); EST Glomerular Filtration Rate 53 mL/min (>60); Est Glom Filt Rate - Afr Amer 65 mL/min (>60); Glucose 188 mg/dL (74-106); High Density Lipoprotein 35 mg/dL; Potassium 4.3 mmol/L (3.5-5.1); Protein, Total 6.8 g/dL (6.4-8.2); Sodium Level 141 mmol/L (136-145); Triglycerides 279 mg/dL; Very Low Density Lipoprotein 56 mg/dL (5-40)
== END | disposition home or self-care (01) ==
LOC: MFPLAB 14:54
PROVIDERS: PCP Family Medicine; Visit Provider Family Medicine
DX: I10 Essential (primary) hypertension (principal); E11.65 Type 2 diabetes mellitus with hyperglycemia
CPT/HCPCS: 36415; 80048; 80061; 80076

== ENCOUNTER → 2022-05-12 | Outpatient (CLI) | payer MEDICARE, SELFPAY ==
--- NOTE | 2022-05-12 12:48 | CDU_ITS ---
Reason For Study: Stenosis Rt. Velocities/BP Lt. Velocities/BP Prox CCA 87.2/14.5 cm/sec. Prox CCA 93.7/15.1 cm/sec. Mid CCA 93.8/13.5 cm/sec. Mid CCA 98.6/16.3 cm/sec. Dist CCA 68.5/16.8 cm/sec. Dist CCA 106/11.4 cm/sec. Prox ICA 121.1/27.9 cm/sec. Prox ICA 68.5/12.4 cm/sec. Mid ICA 143/31.6 cm/sec. Mid ICA 63/15.7 cm/sec. Dist ICA 79/22.5 cm/sec. Dist ICA 63/16.8 cm/sec. Rt. ICA/CCA = 1.64. Lt. ICA/CCA = 0.69. Prox ECA 176.3/22.6 cm/sec. Prox ECA 99.8/12.6 cm/sec. Rt. Vert. 57.5/13.5 cm/sec. Lt. Vert. 50/5.9 cm/sec. Right Extracranial There is intimal thickening but no significant atherosclerotic plaque noted in the right common carotid artery. There is heterogeneous, irregular atherosclerotic plaque noted in the right internal carotid artery. There is heterogeneous, irregular atherosclerotic plaque noted in the right external carotid artery. Antegrade flow is noted in the right vertebral artery. Left Extracranial There is homogeneous, smooth atherosclerotic plaque noted in the left common carotid artery. There is homogeneous, smooth atherosclerotic plaque noted in the left internal carotid artery. There is intimal thickening but no significant atherosclerotic plaque noted in the left external carotid artery. Antegrade flow is noted in the left vertebral artery. Procedure Carotid Duplex [id number]. This is a Carotid Duplex examination using B-mode, color flow and specral Doppler. Exam performed in department. VL/Carotid Duplex Ultrasound Interpretation Summary Irregular calcific plaque with shadowing at the proximal right internal carotid artery with 50 to 69% stenosis Less than 50% stenosis right external carotid artery Widely patent postoperative changes of the left carotid bulb and proximal inter nal carotid artery with intimal thickening and less than 50% stenosis. Less than 50% stenosis left external carotid artery Patent antegrade vertebrals bilaterally No change from April 22, 2021 Ordering Physician: Kenan Garcia Referring Physician: Melany Zamora M.D. Performed By: Imani Malik RVT
== END | disposition home or self-care (01) ==
LOC: CVS 12:47
PROVIDERS: PCP Family Medicine; Referring Provider Surgery; Visit Provider Surgery
DX: I65.21 Occlusion and stenosis of right carotid artery (principal)
CPT/HCPCS: 93880

== ENCOUNTER → 2022-10-10 | Outpatient (CLI) | payer MEDICARE, SELFPAY ==
[2022-10-10 19:19] LABS: PSA,Total - Annual Screen 1.01 ng/mL (0.00-4.00)
== END | disposition home or self-care (01) ==
LOC: MFPLAB 15:04
PROVIDERS: PCP Family Medicine; Visit Provider Family Medicine
DX: E11.65 Type 2 diabetes mellitus with hyperglycemia (principal); Z12.5 Encounter for screening for malignant neoplasm of prostate
CPT/HCPCS: 36415; 84153; G0103

== ENCOUNTER → 2022-11-20 | Outpatient (CLI) | payer MEDICARE, SELFPAY ==
--- NOTE | 2022-11-20 09:45 | RAD_ITS ---
PROCEDURE: Fluoroscopic guided right shoulder arthrogram. DATE: 11/20/2022 INDICATION: 67-year-old male with concerns for right labral tear. PHYSICIAN: Troy Scott D.O. MEDICATIONS: 5 cc of 2% lidocaine was administered subcutaneously for local anesthesia. ACCESS SITE: Right shoulder NEEDLE: 22-gauge spinal needle. FLUOROSCOPY TIME (if supplied): 8 seconds. One image obtained.. FINDINGS: The risks, benefits, and alternatives to the procedure were explained to the patient. The specific risks of bleeding, infection, and neurovascular injury were detailed and accepted. Witnessed informed consent was obtained. Injection site in the right shoulder was selected utilizing fluoroscopy. The area was then prepared with usual sterile technique utilizing iodine prep. 5 cc of 2% lidocaine was administered locally utilizing a 25-gauge injection needle. A 22-gauge spinal needle was then placed into the right shoulder joint cavity utilizing periodic fluoroscopic guidance. Placement of the needle into the joint space was confirmed by injecting 2 to 3 cc of 50:50 normal saline/Isovue contrast mixture. Approximately 10 cc of MRI contrast mixture provided and previously prepared by the pharmacy was then injected into the joint space. The needle was then removed. The patient tolerated the procedure well without any immediate complications. The patient was then sent for MRI in stable condition. RAD/Arthrogram Shoulder w/ MRI IMPRESSION: Successful fluoroscopic guided right shoulder arthrogram. Electronically Signed: Troy Scott DO at 13:07 EDT ,
--- NOTE | 2022-11-20 10:02 | MRI_ITS ---
STUDY: MRI ARTHROGRAM OF RIGHT SHOULDER REASON FOR EXAM: Male, 67 years old. Pain with limited range of motion. Evaluate for labral tear. TECHNIQUE: Standardized fat and water weighted pulse sequences were obtained in all 3 orthogonal planes. COMPARISON: X-rays of the right shoulder dated October 19, 2022 and MRI arthrogram image dated November 20, 2022. FINDINGS: Adequate joint distention without extravasation. Supraspinatus tendinosis with a partial articular surface tear of the far anterior fibers measuring 5 mm in diameter and occupying approximately 50% of the tendon thickness (coronal series 4 images 8-11). Infraspinatus tendinosis with minimal articular surface fraying without a partial thickness or full-thickness tear (coronal series 4 images 5-10). Subscapularis tendinosis with thinning/attenuation without a partial thickness or full-thickness tear ((axial series 2 images 10-14). Normal teres minor tendon. Normal supraspinatus muscle. Normal infraspinatus muscle. Normal subscapularis muscle. Normal teres minor muscle. Mild loss of articular cartilage of the glenohumeral joint (axial series 2 images 7-13). Normal humeral head and visualized proximal humerus. Normal biceps labral complex. Normal intracapsular long biceps tendon. Slight increased signal intensity within the superior labrum without a detached tear (coronal series 3 images 9-11). Normal capsulo- ligamentous complex. Normal rotator interval. Moderate-sized AC joint effusion. Marked hypertrophy of the AC joint with narrowing of the subacromial space (coronal series 4 images 8-13). There is a Type II morphology (curved), with a neutral orientation. Small amount of subacromial-subdeltoid bursal fluid (coronal series 4 image 8). Normal visualized coracohumeral and coracoacromial ligaments. Normal quadrilateral space. Normal axillary space. Normal deltoid muscle. Normal trapezius muscle. MRI/Upper Ext Jt Only W/Contrast IMPRESSION: Supraspinatus tendinosis with a partial articular surface tear of the far anterior fibers as described. Infraspinatus and subscapularis tendinosis without a partial-thickness or full-thickness tear. Mild arthrosis of the glenohumeral joint. Slight increased signal intensity within the superior labrum without a detached tear. Moderate-sized AC joint effusion. Marked hypertrophy of the AC joint with narrowing of the subacromial space. Glenohumeral joint distention with contrast with small amount of subacromial-subdeltoid bursal fluid. Electronically Signed: Alec Torres MD at 12:51 EDT ,
[2022-11-20] MEDS: Lidocaine 2% (5ml sdv) 5 ML VIAL.MPF (10:13)
[2022-11-20] MEDS: Gadoterate Meglumine Diluted 10 ML, Iopamidol 5 ML, Lidocaine 1% (20 ml mdv) 5 ML, Epin... INTRAARTIC (10:23)
[2022-11-20] MEDS: Iopamidol 10 ML in Syringe 1 EACH 600 ML INTRAARTIC (10:23)
== END | disposition home or self-care (01) ==
LOC: MRI 09:15
PROVIDERS: PCP Family Medicine; Referring Provider Orthopaedic Surgery Sports Medicine; Visit Provider Orthopaedic Surgery Sports Medicine
DX: M25.511 Pain in right shoulder (principal)
CPT/HCPCS: 23350; 73222; 77002; Q9967

== ENCOUNTER → 2023-04-17 | Outpatient (CLI) | payer MEDICARE, SELFPAY ==
--- NOTE | 2023-04-17 10:45 | RAD_ITS ---
STUDY: X-RAY - PELVIS AND RIGHT HIP REASON FOR EXAM: Male, 68 years old. Pain s/p fall TECHNIQUE: 3 views of the pelvis and hip. COMPARISON: None. FINDINGS: There is a non-specific bowel gas pattern. Findings suggestive of prior appendectomy. Normal bilateral iliac wings, sacroiliac joints and visualized sacrum. Normal bilateral superior and inferior pubic rami. Normal pubic symphysis. Normal bilateral ischial tuberosities. [id number] degree of bilateral hip joint narrowing. RAD/HIP, UNI W/ Pelvis 2-3 Views IMPRESSION: No acute mouth is seen. Degenerative changes of both hip joints. Electronically Signed: Sang Santos MD at 14:58 EST ,
--- OUTSIDE RECORDS SUMMARY | 2023-04-17 11:20 | XMS RPT_ITS | CCD ---
Author Name Unknown Address [address] [facility] [address] [place] [address] Organization [facility] Care Team Providers Care Fish Flipper Name Role Phone Chavez Kramer Unavailable Shelbi Trujillo Unavailable Shelbi Trujillo Unavailable Shelbi Trujillo Unavailable Medications Completed/Discontinued Medications Medication Drug Class(es) Dates Sig (Normalized) Sig (Original) amLODIPine 5 mg oral tablet (5 sources) Dihydropyridine Calcium Channel Quynh Start: 5 AMLODIPINE BESYLATE 5 MG TABS as directed AMLODIPINE BESYLATE 23527134320 Chavez Kramer aspirin 81 mg chewable tablet (5 sources) Nonsteroidal Anti-inflammatory Drug Start: 5 CHILDRENS ASPIRIN 81 MG CHEW as directed ASPIRIN [id number] Chavez Kramer hydroCHLOROthiazide 12.5 mg / lisinopril 20 mg oral tablet (5 sources) Thiazide Diuretic, Angiotensin Converting Enzyme Inhibitor Start: 5 LISINOPRIL-HYDRO CHLOROTHIAZIDE 20-12.5 MG TABS as directed LISINOPRIL-HYDRO CHLOROTHIAZIDE [id number] Chavez Kramer ibuprofen 200 mg oral tablet (5 sources) Nonsteroidal Anti-inflammatory Drug Start: 5 MOTRIN IB 200 MG TABS as directed IBUPROFEN [id number] Chavez Kramer pantoprazole 40 mg delayed release oral tablet (5 sources) Proton Pump Inhibitor Start: 5 PANTOPRAZOLE SODIUM 40 MG TBEC as directed PANTOPRAZOLE SODIUM [id number] Chavez Kramer Problems Problem Classification Problem Date Documented Da te Episodic/Chronic Other connective tissue disease (17 sources) Radial styloid tenosynovitis; Translations: [Pain in thumb ] Onset: 09-07-2014 04-05-2016 Episodic Other non-traumatic joint disorders (7 sources) Pain in unspecified elbow; Translations: [Pain in left elbow] Onset: 09-07-2014 09-13-2014 Episodic Results Test Name Value Interpretation Reference Range Facil ity Vital Signs Date Time Vital Sign Value Performing Clinician Faci lity 09-07-2014 16:19-0400 BMI (Body Mass Index) 28.89 kg/m2 [facility] Work Phone: 09-07-2014 16:19-0400 Height 172.72 cm [facility] Work Phone: 09-07-2014 16:19-0400 Weight 86.18 kg [facility] Work Phone: Encounters Encounter Date Encounter Type Care Provider Facility Start: 04-06-2017 End: 04-06-[address] [facility] Start: 01-07-2017 End: 01-10-[address] [facility] Procedures Date Procedure Procedure Detail Performing Clinician Start: 01-31-2017 End: 02-18-2017 Arthrocentesis aspir&/inj interm jt/burs w/o Chavez Kramer Work Phone: Start: 08-11-2016 End: 08-28-2016 Arthrocentesis aspir&/inj interm jt/burs w/o Chavez Kramer Work Phone: Start: 08-11-2016 End: 08-28-2016 Drain/inject, joint/bursa Chavez Kramer Work Phone: Start: 03-22-2016 End: 04-05-2016 Arthrocentesis aspir&/inj interm jt/burs w/o us Chavez Kramer Work Phone: Start: 03-22-2016 End: 04-05-2016 Drain/inject, joint/bursa Chavez Kramer Work Phone: Start: 04-28-2015 End: 05-07-2015 Arthrocentesis aspir&/inj interm jt/burs w/o us Chavez Kramer Work Phone: Start: 04-28-2015 End: 05-07-2015 Drain/inject, joint/bursa Chavez Kramer Work Phone: Start: 09-07-2014 End: 09-23-2014 Arthrocentesis aspir&/inj interm jt/burs w/o us Chavez Kramer Work Phone: Start: 09-07-2014 End: 09-23-2014 Drain/inject, joint/bursa Chavez Kramer Work Phone: Plan of Treatment Date Care Activity Detail Author Start: 01-31-2017 End: 01-31-2017 Appointment Appointment [facility] Work Phone: Start: 09-16-2014 End: 09-16-2014 Occupational Therapy General [facility], [address] [place] [address], [phone] [facility] Work Phone: Start: 09-16-2014 End: 09-16-2014 Occupational Therapy General [facility], [address] [place] [address], [phone] [facility] Work Phone: Summary Purpose Family History No Family History Records Found Advance Directives No Advanced Directives Records Found Additional Source Comments (unrecognized sect ion and content) No Status Records Found INFORMATION SOURCE (unrecogn ized section and content) FOR RECORDS PERTAINING TO PATIENTS WHO ARE OR HAVE BEEN ENROLLED IN A CHEMICAL DEPENDENCY/SUBSTANCEABUSE PROGRAM, SOME INFORMATION MAY BE OMITTED. This clinical summary was aggregated from multiple sources. Caution should be exercised in using it in the provision of clinical care. This summary normalizes information from multiple sources, and as a consequence, information in this document may materially change the coding, format and clinical context of patient data. In addition, data may be omitted in some cases. CLINICAL DECISIONS SHOULD BE BASED ON THE PRIMARY CLINICAL RECORDS. [employer] provides no warranty or guarantee of the accuracy or completeness of information in this document.
[2023-04-17 13:04] LABS: Microalbumin:Creatinine Ratio 926.4 mg/g CRE (<30 mg/g CRE)
[2023-04-17 13:08] LABS: AST(SGOT) 16 U/L (15-37); Alanine Aminotransfer ALT/SGPT 22 U/L (16-61); Albumin, Serum 3.6 g/dL (3.2-5.0); Alkaline Phosphatase 78 U/L (45-117); Anion Gap 9 (5-15); BUN 17 mg/dL (7-18); BUN/Creat Ratio 12.2 RATIO (10-20); Bilirubin, Direct 0.16 mg/dL (0.00-0.30); Chloride 108 mmol/L (98-107); Cholesterol 115 mg/dL (200); Creatinine, Serum 1.39 mg/dL (0.70-1.30); EST Glomerular Filtration Rate 54 mL/min (>60); Est Glom Filt Rate - Afr Amer 65 mL/min (>60); Globulin 3.3 g/dL (2.2-4.2); Glucose 177 mg/dL (74-106); High Density Lipoprotein 39 mg/dL; Potassium 3.8 mmol/L (3.5-5.1); Protein, Total 6.9 g/dL (6.4-8.2); Sodium Level 140 mmol/L (136-145); Triglycerides 242 mg/dL; Very Low Density Lipoprotein 48 mg/dL (5-40)
== END | disposition home or self-care (01) ==
LOC: MTLAB 10:43
PROVIDERS: PCP Family Medicine; Referring Provider Family Medicine; Visit Provider Family Medicine
DX: M25.551 Pain in right hip (principal); E11.59 Type 2 diabetes mellitus with other circulatory complications
CPT/HCPCS: 36415; 73502; 80048; 80061; 80076; 82043; 82570

== ENCOUNTER → 2023-05-16 | Outpatient (CLI) | payer MEDICARE, SELFPAY ==
--- OUTSIDE RECORDS SUMMARY | 2023-05-16 14:20 | XMS RPT_ITS | CCD ---
Author Name Unknown Address [address] [facility] [address] [place] [address] Organization [facility] Care Team Providers Care Chick Sexer Name Role Phone Chavez Kramer Unavailable Shelbi Trujillo Unavailable Shelbi Trujillo Unavailable Shelbi Trujillo Unavailable Medications Completed/Discontinued Medications Medication Drug Class(es) Dates Sig (Normalized) Sig (Original) amLODIPine 5 mg oral tablet (5 sources) Dihydropyridine Calcium Channel Quynh Start: 5 AMLODIPINE BESYLATE 5 MG TABS as directed AMLODIPINE BESYLATE [id number] Chavez Kramer aspirin 81 mg chewable tablet (5 sources) Nonsteroidal Anti-inflammatory Drug Start: 5 CHILDRENS ASPIRIN 81 MG CHEW as directed ASPIRIN [id number] Chavez Kramer hydroCHLOROthiazide 12.5 mg / lisinopril 20 mg oral tablet (5 sources) Thiazide Diuretic, Angiotensin Converting Enzyme Inhibitor Start: 5 LISINOPRIL-HYDRO CHLOROTHIAZIDE 20-12.5 MG TABS as directed LISINOPRIL-HYDRO CHLOROTHIAZIDE [id number] Chavez Kramer ibuprofen 200 mg oral tablet (5 sources) Nonsteroidal Anti-inflammatory Drug Start: 5 MOTRIN IB 200 MG TABS as directed IBUPROFEN [id number] Chavez Kramer pantoprazole 40 mg delayed release oral tablet (5 sources) Proton Pump Inhibitor Start: 5 PANTOPRAZOLE SODIUM 40 MG TBEC as directed PANTOPRAZOLE SODIUM [id number] Chavez Kramer Problems Problem Classification Problem Date [...] 16:19-0400 BMI (Body Mass Index) 28.89 kg/m2 [facility] Work Phone: 09-07-2014 16:19-0400 Height 172.72 cm [facility] Work Phone: 09-07-2014 16:19-0400 Weight 86.18 kg [facility] Work Phone: Encounters Encounter Date Encounter Type Care Provider Facility Start: 04-06-2017 End: 04-06-2017 Ambulatory [facility] Start: 01-07-2017 End: 01-10-2017 Ambulatory [facility] Procedures Date Procedure Procedure Detail Performing Clinician [...] Author Start: 01-31-2017 End: 01-31-2017 Appointment Appointment [facility] Work Phone: Start: 09-16-2014 End: 09-16-2014 Occupational Therapy General [facility], [address] [place] [address], [phone] [facility] Work Phone: Start: 09-16-2014 End: 09-16-2014 Occupational Therapy General [facility], [address] [place] [address], [phone] [facility] Work Phone: Summary [...] BE BASED ON THE PRIMARY CLINICAL RECORDS. [employer] provides no warranty or guarantee of the accuracy or completeness of information in this document.
[2023-05-16 14:31] LABS: Microalbumin:Creatinine Ratio 560.2 mg/g CRE (<30 mg/g CRE)
== END | disposition home or self-care (01) ==
LOC: LABSPEC 13:20
PROVIDERS: PCP Family Medicine; Referring Provider Internal Medicine Nephrology; Visit Provider Internal Medicine Nephrology
DX: N18.31 Chronic kidney disease, stage 3a (principal)
CPT/HCPCS: 82043; 82570

== ENCOUNTER → 2023-05-18 | Outpatient (CLI) | payer MEDICARE, SELFPAY ==
--- NOTE | 2023-05-18 09:57 | CDU_ITS ---
Reason For Study: CAROTID ARTERY STENOSIS Rt. Velocities/BP Lt. Velocities/BP Prox CCA 73.2/9.5 cm/sec. Prox CCA 160.0/23.0 cm/sec. Mid CCA 100.7/18.2 cm/sec. Mid CCA 123.5/24.8 cm/sec. Dist CCA 62.2/14.9 cm/sec. Dist CCA 119.8/21.2 cm/sec. Prox ICA 141.7/30.3 cm/sec. Prox ICA 113.1/12.6 cm/sec. Mid ICA 172.5/25.5 cm/sec. Mid ICA 69.9/13.4 cm/sec. Dist ICA 94.8/18.1 cm/sec. Dist ICA 124.2/16.7 cm/sec. Rt. ICA/CCA = 172.5/100.7=1.7. Lt. ICA/CCA = 124.2/123.5=1.0. Prox ECA 141.7/13.9 cm/sec. Prox ECA 163.8/16.1 cm/sec. Rt. Vert. 71.0/17.1 cm/sec. Lt. Vert. 59.1/8.1 cm/sec. Right Extracranial There is intimal thickening but no significant atherosclerotic plaque noted in the right common carotid artery. There is heterogeneous, irregular atherosclerotic plaque noted in the right internal carotid artery. There is heterogeneous, irregular atherosclerotic plaque noted in the right external carotid artery. Antegrade flow is noted in the right vertebral artery. Left Extracranial There is homogeneous, smooth atherosclerotic plaque noted in the left common carotid artery. There is homogeneous, smooth atherosclerotic plaque noted in the left internal carotid artery. There is intimal thickening but no significant atherosclerotic plaque noted in the left external carotid artery. Antegrade flow is noted in the left vertebral artery. Procedure Carotid Duplex [id number]. This is a Carotid Duplex examination using B-mode, color flow and specral Doppler. Exam performed in department. VL/Carotid Duplex Ultrasound Interpretation Summary Irregular calcific plaque at the proximal right internal carotid artery with 50 to 69% stenosis. Less than 50% stenosis right external carotid artery Widely patent postoperative changes of the left carotid bulb and proximal inter nal carotid artery with less than 50% stenosis Less than 50% stenosis left external carotid artery Patent and antegrade vertebral arteries bilaterally No change from the previous examination of May 12, 2022 Ordering Physician: Kenan Garcia Referring Physician: Melany Zamora Performed By: Venessa Hamilton, VIJI, RVT
--- OUTSIDE RECORDS SUMMARY | 2023-05-18 10:18 | XMS RPT_ITS | CCD ---
Author Name Unknown Address [address] [employer] [facility] [address] [place] [address] Organization [facility] Care Team Providers Care Chief Electrician Name Role Phone Chavez Kramer Unavailable Shelbi Trujillo Unavailable Shelbi Trujillo Unavailable Shelbi Trujillo Unavailable Medications Completed/Discontinued Medications Medication Drug Class(es) Dates Sig (Normalized) Sig (Original) amLODIPine 5 mg oral tablet (5 sources) Dihydropyridine Calcium Channel Quynh Start: 5 AMLODIPINE BESYLATE 5 MG TABS as directed AMLODIPINE BESYLATE [id number] Chavez Kramer aspirin 81 mg chewable tablet (5 sources) Nonsteroidal Anti-inflammatory Drug Start: 5 CHILDRENS ASPIRIN 81 MG CHEW as directed ASPIRIN [id number] Chavez Kramer hydroCHLOROthiazide 12.5 mg / lisinopril 20 mg oral tablet (5 sources) Thiazide Diuretic, Angiotensin Converting Enzyme Inhibitor Start: 5 LISINOPRIL-HYDRO CHLOROTHIAZIDE 20-12.5 MG TABS as directed LISINOPRIL-HYDRO CHLOROTHIAZIDE [id number] Chavez Kramer ibuprofen 200 mg oral tablet (5 sources) Nonsteroidal Anti-inflammatory Drug Start: 5 MOTRIN IB 200 MG TABS as directed IBUPROFEN [id number] Chavez Kramer pantoprazole 40 mg delayed release oral tablet (5 sources) Proton Pump Inhibitor Start: 5 PANTOPRAZOLE SODIUM 40 MG TBEC as directed PANTOPRAZOLE SODIUM [id number] Chavez Kramer Problems Problem Classification Problem Date [...] 16:19-0400 BMI (Body Mass Index) 28.89 kg/m2 [facility] Work Phone: 09-07-2014 16:19-0400 Height 172.72 cm [facility] Work Phone: 09-07-2014 16:19-0400 Weight 86.18 kg [facility] Work Phone: Encounters Encounter Date Encounter Type Care Provider Facility Start: 04-06-2017 End: 04-06-2017 Ambulatory [facility] Start: 01-07-2017 End: 01-10-2017 Ambulatory [facility] Procedures Date Procedure Procedure Detail Performing Clinician Start: 01-31-2017 End: 02-18-2017 Arthrocentesis aspir&/inj interm jt/burs w/o Chavez Kramer Work Phone: Start: 08-11-2016 End: 08-28-2016 Arthrocentesis aspir&/inj interm jt/burs w/o Chavez Kramer Work Phone: Start: 08-11-2016 End: 08-28-2016 Drain/inject, joint/bursa Chavez Kramer Work Phone: Start: 03-22-2016 End: 04-05-2016 Arthrocentesis aspir&/inj interm jt/burs w/o us Chavez Kramer Work Phone: Start: 03-22-2016 End: 04-05-2016 Drain/inject, joint/bursa Chaevz Kramer Work Phone: Start: 04-28-2015 End: 05-07-2015 [...] Author Start: 01-31-2017 End: 01-31-2017 Appointment Appointment [facility] Work Phone: Start: 09-16-2014 End: 09-16-2014 Occupational Therapy General [facility], [address] [place] [address], [phone] [facility] Work Phone: Start: 09-16-2014 End: 09-16-2014 Occupational Therapy General [facility], [address] [place] [address], [phone] [facility] Work Phone: Summary [...] BE BASED ON THE PRIMARY CLINICAL RECORDS. [employer] provides no warranty or guarantee of the accuracy or completeness of information in this document.
== END | disposition home or self-care (01) ==
LOC: CVS 09:57
PROVIDERS: PCP Family Medicine; Referring Provider Surgery; Visit Provider Surgery
DX: I65.21 Occlusion and stenosis of right carotid artery (principal)
CPT/HCPCS: 93880

== ENCOUNTER → 2023-07-19 | Outpatient (CLI) | payer MEDICARE, SELFPAY | END | disposition home or self-care (01) | PROVIDERS: PCP Family Medicine; Referring Provider Family Medicine; Visit Provider Family Medicine | DX: R19.7 Diarrhea, unspecified (principal) | CPT/HCPCS: 87177; 87209; 87493 ==

== ENCOUNTER → 2023-07-24 | Outpatient (CLI) | payer MEDICARE, SELFPAY | END | disposition home or self-care (01) | LOC: MTLAB 10:51 | PROVIDERS: PCP Family Medicine; Referring Provider Family Medicine; Visit Provider Family Medicine | DX: R19.7 Diarrhea, unspecified (principal) | CPT/HCPCS: 87177; 87209 ==

== ENCOUNTER → 2023-07-27 | Outpatient (CLI) | payer MEDICARE, SELFPAY ==
[2023-07-27 11:30] LABS: Albumin, Serum 3.4 g/dL (3.2-5.0); BUN 14 mg/dL (7-18); BUN/Creat Ratio 10.8 RATIO (10-20); Calcium,Total 8.9 mg/dL (8.5-10.1); Chloride 107 mmol/L (98-107); EST Glomerular Filtration Rate 58 mL/min (>60); Est Glom Filt Rate - Afr Amer 70 mL/min (>60); Glucose 196 mg/dL (74-106); Phosphorus 2.4 mg/dL (2.5-4.9); Potassium 3.5 mmol/L (3.5-5.1); Sodium Level 138 mmol/L (136-145)
[2023-07-27 15:48] LABS: Microalbumin:Creatinine Ratio 943.3 mg/g CRE (<30 mg/g CRE)
[2023-07-30 12:08] LABS: ANTINUCLEAR ANTIBODIES DIRECT Negative (Negative)
[2023-07-30 15:07] LABS: PROEL- A/G Ratio 1.1 (0.7-1.7); PROEL- Albumin 3.2 g/dL (2.9-4.4); PROEL- Alpha-1 Globulin 0.2 g/dL (0.0-0.4); PROEL- Beta Globulin 0.7 g/dL (0.7-1.3); PROEL- Gamma Globulin 0.8 g/dL (0.4-1.8); PROEL- Globulin, Total 2.8 g/dL (2.2-3.9); PROEL-M-Spike Not Observed g/dL (Not Observed)
[2023-08-01 15:08] LABS: PROELU- Albumin, Urine 77.3 % (.); PROELU- Alpha-1-Globulin,Ur 5.3 % (.); PROELU- Alpha-2-Globulin,Ur 3.3 % (.); PROELU- Beta Globulin, Ur 10.2 % (.); PROELU- Gamma Globulin, Ur 3.7 % (.); Total Protein, Ur 53.9 mg/dL (Not Estab.)
== END | disposition home or self-care (01) ==
LOC: LAB 10:27
PROVIDERS: PCP Family Medicine; Referring Provider Internal Medicine Nephrology; Visit Provider Internal Medicine Nephrology
DX: E11.22 Type 2 diabetes mellitus with diabetic chronic kidney disease (principal); N18.31 Chronic kidney disease, stage 3a; R80.9 Proteinuria, unspecified
CPT/HCPCS: 36415; 80069; 82043; 82570; 84165; 84166; 86038

== ENCOUNTER → 2023-10-29 | Outpatient (CLI) | payer MEDICARE, SELFPAY | END | disposition home or self-care (01) | LOC: MFPLAB 16:38 | PROVIDERS: PCP Family Medicine; Visit Provider Family Medicine | DX: Z12.5 Encounter for screening for malignant neoplasm of prostate (principal) | CPT/HCPCS: 36415; 84153; G0103 ==

== ENCOUNTER → 2023-12-25 | Outpatient (CLI) | payer MEDICARE, SELFPAY ==
[2023-12-25 12:31] LABS: Albumin, Serum 3.4 g/dL (3.2-5.0); BUN 17 mg/dL (7-18); BUN/Creat Ratio 12.6 RATIO (10-20); Calcium,Total 9.5 mg/dL (8.5-10.1); Chloride 108 mmol/L (98-107); Creatinine, Serum 1.35 mg/dL (0.70-1.30); EST Glomerular Filtration Rate 55 mL/min (>60); Est Glom Filt Rate - Afr Amer 67 mL/min (>60); Glucose 197 mg/dL (74-106); Phosphorus 2.2 mg/dL (2.5-4.9); Potassium 4.1 mmol/L (3.5-5.1); Sodium Level 139 mmol/L (136-145)
[2023-12-25 13:06] LABS: Microalbumin:Creatinine Ratio 1095.7 mg/g CRE (<30 mg/g CRE)
== END | disposition home or self-care (01) ==
LOC: LAB 10:21
PROVIDERS: PCP Family Medicine; Referring Provider Internal Medicine Nephrology; Visit Provider Internal Medicine Nephrology
DX: E11.22 Type 2 diabetes mellitus with diabetic chronic kidney disease (principal); E11.21 Type 2 diabetes mellitus with diabetic nephropathy; N18.31 Chronic kidney disease, stage 3a
CPT/HCPCS: 36415; 80069; 82043; 82570

== ENCOUNTER → 2024-02-04 | Outpatient (CLI) | payer MEDICARE, SELFPAY ==
[2024-02-04 10:13] LABS: Anion Gap 7 (5-15); BUN 18 mg/dL (7-18); BUN/Creat Ratio 14.3 RATIO (10-20); Calcium,Total 9.1 mg/dL (8.5-10.1); Chloride 105 mmol/L (98-107); Creatinine, Serum 1.26 mg/dL (0.70-1.30); EST Glomerular Filtration Rate 60 mL/min (>60); Est Glom Filt Rate - Afr Amer 73 mL/min (>60); Glucose 217 mg/dL (74-106); Sodium Level 138 mmol/L (136-145)
== END | disposition home or self-care (01) ==
LOC: POLAB3 09:16
PROVIDERS: PCP Family Medicine; Referring Provider Internal Medicine Nephrology; Visit Provider Internal Medicine Nephrology
DX: N18.31 Chronic kidney disease, stage 3a (principal)
CPT/HCPCS: 36415; 80048

== ENCOUNTER → 2024-05-08 | Outpatient (CLI) | payer MEDICARE, SELFPAY ==
[2024-05-08 13:53] LABS: Albumin, Serum 3.5 g/dL (3.2-5.0); BUN 13 mg/dL (7-18); BUN/Creat Ratio 10.3 RATIO (10-20); Calcium,Total 9.1 mg/dL (8.5-10.1); Chloride 106 mmol/L (98-107); Creatinine, Serum 1.26 mg/dL (0.70-1.30); EST Glomerular Filtration Rate 60 mL/min (>60); Est Glom Filt Rate - Afr Amer 73 mL/min (>60); Glucose 181 mg/dL (74-106); Phosphorus 2.4 mg/dL (2.5-4.9); Potassium 3.7 mmol/L (3.5-5.1); Sodium Level 141 mmol/L (136-145)
[2024-05-08 14:31] LABS: Microalbumin:Creatinine Ratio 1932.9 mg/g CRE (<30 mg/g CRE)
[2024-05-08 15:13] LABS: PTHIN 75.3 pg/mL (18.4-80.1)
== END | disposition home or self-care (01) ==
LOC: POLAB3 12:54
PROVIDERS: PCP Family Medicine; Visit Provider Internal Medicine Nephrology
DX: E11.22 Type 2 diabetes mellitus with diabetic chronic kidney disease (principal); N18.31 Chronic kidney disease, stage 3a
CPT/HCPCS: 36415; 80069; 82043; 82570; 83970

== ENCOUNTER → 2024-09-04 | Outpatient (CLI) | payer MEDICARE, SELFPAY ==
--- NOTE | 2024-09-04 13:45 | CDU_ITS ---
Reason For Study Reason For Study: HX Rt ICA Stenosis / Lt ICA CEA Rt. Velocities/BP Lt. Velocities/BP Prox CCA 77.8/17.5 cm/sec. Prox CCA 116.7/18.1 cm/sec. Mid CCA 87.5/23.6 cm/sec. Mid CCA 101.4/17.9 cm/sec. Dist CCA 65.5/19.3 cm/sec. Dist CCA 96.5/19.2 cm/sec. Prox ICA 160.0/35.6 cm/sec. Prox ICA 71.1/19.5 cm/sec. Mid ICA 128.6/32.0 cm/sec. Mid ICA 80.9/23.2 cm/sec. Dist ICA 74.3/23.2 cm/sec. Dist ICA 69.9/19.5 cm/sec. Rt. ICA/CCA = 1.8. Lt. ICA/CCA = 0.8. Prox ECA 168.2/12.3 cm/sec. Prox ECA 110.0/9.3 cm/sec. Rt. Vert. 43.3/10.1 cm/sec. Lt. Vert. 48.8/6.9 cm/sec. Right Extracranial There is intimal thickening but no significant atherosclerotic plaque noted in the right common carotid artery. There is heterogeneous, irregular atherosclerotic plaque noted in the right internal carotid artery. There is heterogeneous, irregular atherosclerotic plaque noted in the right external carotid artery. Antegrade flow is noted in the right vertebral artery. Left Extracranial There is homogeneous, smooth atherosclerotic plaque noted in the left common carotid artery. There is heterogeneous, irregular atherosclerotic plaque noted in the left internal carotid artery. HX CEA. There is heterogeneous, irregular atherosclerotic plaque noted in the left external carotid artery. Antegrade flow is noted in the left vertebral artery. Procedure Carotid Duplex [id number]. This is a Carotid Duplex examination using B-mode, color flow and specral Doppler. The exam was diagnostic. Exam performed in department. VL/Carotid Duplex Ultrasound Interpretation Summary Moderate (50-69%) stenosis right extracranial internal carotid. Mild (<50%) stenosis left extracranial internal carotid. Patent and antegrade vertebrals bilaterally. Ordering Physician: Franci Robles Referring Physician: Franci Robles Performed By: Emerson Wells RVT
== END | disposition home or self-care (01) ==
LOC: CVS 13:45
PROVIDERS: PCP Family Medicine; Referring Provider Physician Assistant; Visit Provider Physician Assistant
DX: I65.23 Occlusion and stenosis of bilateral carotid arteries (principal)
CPT/HCPCS: 93880

== ENCOUNTER → 2024-10-16 | Outpatient (CLI) | payer MEDICARE, SELFPAY ==
[2024-10-16 15:41] LABS: Albumin, Serum 4.2 g/dL (3.4-4.8); Anion Gap 14 (5-15); BUN 22 mg/dL (4-19); BUN/Creat Ratio 15.5 RATIO (10-20); Calcium,Total 9.4 mg/dL (7.6-11.0); Carbon Dioxide 19.7 mmol/L (21.0-32.0); Chloride 105 mmol/L (98-108); Glucose 203 mg/dL (70-99); Potassium 3.8 mmol/L (3.3-5.1)
[2024-10-16 19:56] LABS: Creatinine, Urine (random) 157.00 mg/dL (39.00-259.00)
[2024-10-16 20:08] LABS: Microalbumin,Random Urine 1287.0 mg/L (<20 mg/L)
== END | disposition home or self-care (01) ==
LOC: POLAB3 13:45
PROVIDERS: PCP Family Medicine; Visit Provider Internal Medicine Nephrology
DX: E11.21 Type 2 diabetes mellitus with diabetic nephropathy (principal); E11.22 Type 2 diabetes mellitus with diabetic chronic kidney disease; N18.31 Chronic kidney disease, stage 3a
CPT/HCPCS: 36415; 80069; 82043; 82570

== ENCOUNTER 2024-12-30 12:34 | Emergency (ER) | payer MEDICARE, SELFPAY ==
[2024-12-30 12:35] VITALS: BP 151/65; PULSE 77; RESP 18; TEMP 36.5; O2SAT 98; BMI 28.7
--- NOTE | 2024-12-30 12:47 | RAD_ITS ---
PROCEDURE: FOOT MIN 3 VIEWS 12/30/2024 REASON FOR EXAM: PAIN, DIFFICULTY BEARING WEIGHT TECHNIQUE: Procedure Code: RADFO Modality: DX Procedure: FOOT MIN 3 VIEWS Laterality: Left COMPARISON: None FINDINGS: Bones: There is an acute, osteochondral fracture in the proximal lateral corner of the proximal phalanx of the 4th toe with soft tissue swelling. This is best seen on the oblique view. Joints: Joint spaces well-preserved Soft tissues: No foreign body Other: Calcaneal spurs RAD/Foot min 3 Views IMPRESSION: Acute, minimally displaced osteochondral fracture of the proximal lateral corne r of the proximal phalanx of the 4th toe with soft tissue swelling Calcaneal spurs Reading Location: [id number]
--- NOTE | 2024-12-30 14:40 | EDS_ITS ---
HPI History of Present Illness HPI Narrative: 69-year-old male history of hypertension diabetes. 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 When he got out of a forklift and he accidentally hit it in gear and it ran over his left foot. Denies other injuries. No prior history or surgery of left foot problems. This occurred about 2 hours ago. 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 Prior similar symptoms: No Recent Illness/Hospitalization: No PFSH PFSH Medical History Superior labrum vtumzqqy-vm-eprajtkis (SLAP) tear of right shoulder Primary osteoarthritis, right shoulder Right rotator cuff tendonitis Right rotator cuff tear Right shoulder pain Diverticular disease Gallstones Carotid stenosis Acid reflux Diarrhea Hypertension Upper abdominal pain Gout Home Medications ?Medication ?Instructions ?Recorded ?Last Taken ?Type pantoprazole 40 mg tablet,delayed 40 mg PO DAILY 08/1712/04/19 History release allopurinol 300 mg tablet 300 mg PO DAILY 11/07/19 Unk nown History amlodipine 5 mg tablet 5 mg PO QHS 11/07/19 Unknown History glipizide 5 mg tablet 5 mg PO DAILY 06/06/22 Unkno wn History metformin 1,000 mg tablet 1,000 mg PO DAILY 06/06/22 U nknown History rosuvastatin 10 mg tablet 10 mg PO 10/19/22 Unknown Hi story finerenone 20 mg tablet (Kerendia) 20 mg PO QDAY 09/23 Unknown History lisinopril 40 mg tablet 40 mg PO QDAY 09/23/24 Unkno wn History hydrocodone-acetaminophen 5-325mg 1 tab PO Q4H PRN PRN Pain 4 days 12/30/24 Unknown Rx 5mg-325mg #16 TABLETS Allergy/AdvReac Type Severity Reaction Status Date / Time No Known Allergies Allergy Verified 12/30/24 12:34 Family History Brother Cancer Brain cancer Surgical History History of colonoscopy History of carotid endarterectomy History of partial colectomy Social History Smoking Status: Former smoker alcohol intake: current alcohol intake frequency: holidays/special occasions only substance use type: does not use caffeine: Yes ROS ROS ED ROS Narrative Denies Constitutional Constitutional ED: Denies chills or fever(s) Eyes Eyes: Denies blurry vision ENT ENT ED: Denies ear pain Cardiovascular Cardiovascular: Denies chest pain Respiratory/Chest Respiratory/Chest: Denies cough Gastrointestinal Gastrointestinal: Denies abdominal pain Genitourinary Genitourinary ED: Denies dysuria Musculoskeletal Musculoskeletal: Denies arthralgias Integumentary Denies abscess Neurologic Neurologic: Denies headache(s) Psychiatric Psychiatric: Denies anxiety Endocrine Endocrinology: Denies polydipsia Hematologic/Lymphatic Hematologic/Lymphatic: Denies easy bleeding, easy bruising or lymphadenopathy Allergic/Immunologic Allergic/Immunologic ED: Denies mouth swelling, tongue swelling or urticaria EXAM Physical Exam Narrative Exam Narrative: 69-year-old male sitting upright in bed vital signs stable afebrile. No acute distress. at bedside. H EENT exam pupils round react light. Moist with members. Neck nontender no lymphadenopathy. Lungs clear to auscultation bilaterally. Heart regular rhythm rate about 80 no murmur. Chest wall ribs nontender. Back nontender. Abdomen soft nontender. No peritoneal signs. Pelvic girdle intact. Moving all 4 extremities. 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 Right lower extremity nontender normal range of motion. Left lower extremity left hip nontender knee nontender normal flexion extension abrasion anterior aspect left knee. Ankle nontender. Dorsi plantarflexion intact. Normal DP pulse. The left foot is swollen from the proximal foot to the toes. There is bruising and swelling along the MCP joints of the toes. Most tender around the base of the fourth toe at the MCP. He is able to wiggle his toes. Normal cap refill. Normal touch sensation. Patient is awake and alert. No focal motor deficits. Answering questions following commands. Const Vital Signs: 12/30/24 12:35 Temperature 97.7 F L Temperature Source Temporal Pulse Rate 77 Respiratory Rate 18 Blood Pressure 151/65 H Blood Pressure Mean 93 Pulse Ox 98 Oxygen Delivery Method Room Air Positive well nourished and well developed; Negative for cachectic, contractures or unkempt General Appearance ED: well developed and NAD; Negative for unkempt, cachectic or contractures Nutritional Appearance: Negative for cachectic HEENT Reports moist mucous membranes normocephalic and atraumatic; Negative for trauma or tenderness Eyes PERRL Neck full ROM and supple Chest Wall inspection of chest normal and palpation of chest normal Resp normal respiratory effort, no retractions and clear to auscultation bilaterally Cardio regular rate, regular rhythm, S1 normal heart sound, S2 normal heart sound and no murmurs GI non-tender, non-distended and no masses Auscultation: normoactive bowel sounds Palpation: soft; Negative for tender, guarding or rebound tenderness present Back/Spine no CVA tenderness General Back: Negative for CVA tenderness Cervical Spine: Negative for cervical spine tenderness Thoracic Spine / Upper Back: Negative for thoracic spinal tenderness Lumbar Spine / Lower Back: Negative for lumbar spinal tenderness Extremity normal to inspection and full ROM Extremity Narrative: Except for the left foot. The left foot is swollen. Tender. Foot is neurovascularly intact. Normal DP pulse. Able to wiggle his toes. Normal touch sensation. Skin is closed. Ankle is nontender. Dorsi plantarflexion intact. Achilles tendon intact. The foot is swollen from the proximal foot to the toes. Diffusely tender most so in the base of the fourth toe at the MCP. There is bruising along the MCP joints. General Extremety ED: Yes edema General Extremity: edema Neuro oriented x3, CN's II-XII intact bilaterally, moves all extremities and no sensory deficits noted Sensorium / Orientation: alert, oriented to person, oriented to place and oriented to time Motor Exam: strength 5/5 throughout Psych mental status grossly normal Appearance: Negative for unkempt Skin no wounds Lesions: no lesions Rashes: no rashes MDM MDM MDM Narrative Medical decision making narrative: 69-year-old villalobos injured his left foot when a forklift ran over his foot. X- ray was obtained. Given Regina for pain. The x-ray shows a fracture of the proximal end of the proximal phalanx of the left fourth toe. He and I and his went over the x-ray. Regina for pain. 60 no refill. Ice and elevate. Motrin for inflammation. Walking boot. Follow-up with podiatry if not improving. Patient and are both comfortable with plan. Radiography Diagnostic Testing: Clinical Impression(s) from Imaging Studies Foot X-Ray 12/30/24 12:47 IMPRESSION: Acute, minimally displaced osteochondral fracture of the proximal lateral corner of the proximal phalanx of the 4th toe with soft tissue swelling Calcaneal spurs Reading Location: [facility] Left foot x-ray, 3 views, interpreted both by myself and the radiologist. Proximal end of the proximal phalanx of the fourth toe there is a fracture. Significant soft tissue swelling. Otherwise unremarkable. Discharge Plan Triage Chief Complaint: Lower Extremity Injury ED Provider: Frank Cobian Dx/Rx/DC Orders Clinical Impression: Closed fracture of toe, Contusion of foot Instructions: ED Foot Contusion, ED Closed Toe Fracture Prescriptions: New hydrocodone-acetaminophen 5-325 mg tablet 1 tab PO Q4H PRN PRN (Reason: Pain) 4 Days Qty: 16 0RF No Action amlodipine 5 mg tablet 5 mg PO QHS allopurinol 300 mg tablet 300 mg PO DAILY glipizide 5 mg tablet 5 mg PO DAILY metformin 1,000 mg tablet 1,000 mg PO DAILY rosuvastatin 10 mg tablet 10 mg PO Patient Comments: TAKE 1 TABLET BY MOUTH EVERYDAY AT BEDTIME Kerendia 20 mg tablet 20 mg PO QDAY lisinopril 40 mg tablet 40 mg PO QDAY pantoprazole 40 MG tablet 40 mg PO DAILY Primary Care Provider: Brett Reyes Referrals: Brett Reyes MD [Primary Care Provider, Family Practice] Chavez Valdovinos DPM [Med Staff - Active Staff, Podiatry] - 1 Week if not improving Activity Restrictions/Additional Instructions: Ice and elevate your foot to decrease pain and swelling. Motrin for pain and swelling. Regina for more severe pain. Increase weightbearing as tolerated. The fourth toe is broken. There is no other obvious fractures. 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 Print Language: Moroccan Disposition Disposition: Home, Self Care
[2024-12-30] MEDS: HYDROcodone Bitartrate/Apap 5/325 Tablet PO (14:52)
[2024-12-30 14:58] VITALS: BP 151/65; PULSE 77; RESP 18; TEMP 36.5; O2SAT 98
== END 2024-12-30 15:01 | disposition home or self-care (01) ==
LOC: ED 14:42
PROVIDERS: Emergency Provider Emergency Medicine; PCP Family Medicine; Visit Provider Emergency Medicine
DX: S92.512A Displaced fracture of proximal phalanx of left lesser toe(s), initial encounter for closed fracture (principal); E11.9 Type 2 diabetes mellitus without complications; I10 Essential (primary) hypertension; Z87.891 Personal history of nicotine dependence; S90.30XA Contusion of unspecified foot, initial encounter; W24.0XXA Contact with lifting devices, not elsewhere classified, initial encounter; Y93.89 Activity, other specified; Y92.79 Other farm location as the place of occurrence of the external cause; M10.9 Gout, unspecified; K21.9 Gastro-esophageal reflux disease without esophagitis; Z79.899 Other long term (current) drug therapy; Z79.84 Long term (current) use of oral hypoglycemic drugs; Z90.49 Acquired absence of other specified parts of digestive tract
CPT/HCPCS: 73630; 99283

== ENCOUNTER → 2025-03-09 | Outpatient (CLI) | payer MEDICARE, SELFPAY ==
[2025-03-09 16:47] LABS: Creatinine, Urine (random) 92.20 mg/dL (39.00-259.00)
[2025-03-09 17:27] LABS: Albumin, Serum 4.1 g/dL (3.4-4.8); Anion Gap 13 (5-15); BUN 12 mg/dL (4-19); BUN/Creat Ratio 8.6 RATIO (10-20); Calcium,Total 9.4 mg/dL (7.6-11.0); Carbon Dioxide 24.2 mmol/L (21.0-32.0); Chloride 104 mmol/L (98-108); Glucose 199 mg/dL (70-99); Potassium 3.6 mmol/L (3.3-5.1)
[2025-03-09 22:42] LABS: Xtra Tube Kwok EXTRA TUBE
== END | disposition home or self-care (01) ==
PROVIDERS: PCP Family Medicine; Visit Provider Internal Medicine Nephrology
DX: E11.22 Type 2 diabetes mellitus with diabetic chronic kidney disease (principal); N18.31 Chronic kidney disease, stage 3a
CPT/HCPCS: 36415; 80069; 82043; 82570